=== PATIENT | male | born 1980 | race African-American/Black ===

== ENCOUNTER 2018-05-22 03:45 | Emergency (ER) | payer OTHER ==
[~2018-05-22] VITALS: Ht 185.4 cm; Wt 145.1 kg
[2018-05-22] MEDS ORDERED: KETOROLAC 15 MG/ML VIAL. IV ONE (04:15)
[2018-05-22] MEDS ORDERED: ONDANSETRON PF 4 MG/2 ML VIAL. IV ONE (04:15)
[2018-05-22 04:58] LABS: BASO % 1 % (0-3); EOS % 1 % (0-3); HEMATOCRIT 51.1 % (39.0-53.0); HEMOGLOBIN 16.3 g/dL (13.0-17.5); LYMPH # 1.8 x10^3/uL (1.0-4.8); LYMPH % 46 % (24-48); MEAN CORPUSCULAR HEMOGLOBIN 27 pg (25-35); MEAN CORPUSCULAR HGB CONC 32 g/dL (31-37); MEAN CORPUSCULAR VOLUME 84 fL (79-100); MONO # 0.4 x10^3/uL (0.0-1.1); MONO % 11 % (0-9); NEUT # 1.6 x10^3uL (1.8-7.7); NEUT % 41 % (31-73); PLATELET COUNT 193 x10^3/uL (140-400); RED CELL DISTRIBUTION WIDTH 13.9 % (11.5-14.5)
--- NOTE | 2018-05-22 05:07 | RAD ---
PQRS Compliance statement: One or more of the following individualized dose reduction techniques were utilized for this examination: 1. Automated exposure control. 2. Adjustment of the mA and/or kV according to patient size. 3. Use of iterative reconstruction technique. Indication:right renal colic TECHNIQUE: CT abdomen and pelvis without IV contrast with multiplanar reformats. COMPARISON: None FINDINGS: Limited evaluation of solid abdominal and pelvic organs due to lack of IV contrast. Heart is normal in size. No pericardial or pleural effusion. Clear lung bases. Noncontrast appearance of the liver, spleen, gallbladder, pancreas, adrenals within normal limits. Obstructing 3-4 mm stone in the distal right ureter causing mild hydroureteronephrosis and right renal edema. Punctate nonobstructing right renal stone. No left-sided nephrolithiasis or hydronephrosis. No enlarged retroperitoneal or pelvic adenopathy. No free pelvic fluid or ascites. No bowel obstruction. Normal appendix. Urinary bladder demonstrates no radiopaque stones. The prostate and seminal vesicles show no large mass. No pneumoperitoneum. No suspicious bony lesion. IMPRESSION: Limited evaluation of solid abdominal and pelvic organs due to lack of IV contrast. Obstructing 4 mm distal right ureteral stone. Electronically signed by: Christian Costello DO (05/22/2018 5:03 AM) [facility]
[2018-05-22 05:13] LABS: CALCIUM 9.4 mg/dL (8.5-10.1); CREATININE 1.9 mg/dL (0.7-1.3); POTASSIUM 3.5 mmol/L (3.5-5.1)
[2018-05-22] MEDS ORDERED: IV NORMAL SALINE 1000ML BAG 1,000 ML IV ONE (05:30)
--- NOTE | 2018-05-22 05:39 | PHYS DOC ---
Past Medical History Past Medical History: No Pertinent History (OSMAR PASTOR MD) Past Surgical History: No Surgical History (OSMAR PASTOR MD) Alcohol Use: None Drug Use: None (OSMAR PASTOR MD) Adult General Chief Complaint Chief Complaint: FLANK PAIN HPI HPI Patient is a 37 year old male presenting with chief complaint of right flank pain onset a couple hours ago sharp severe with some diffuse crampy abdominal pain as well positive nausea no previous history no fever vomiting in the ER pain is currently better (OSMAR PASOTR MD) Review of Systems Review of Systems Constitutional: Denies fever or chills [] Eyes: Denies change in visual acuity, redness, or eye pain [] HENT: Denies nasal congestion or sore throat [] Respiratory: Denies cough or shortness of breath [] Neurologic: Denies headache, focal weakness or sensory changes [] Endocrine: Denies polyuria or polydipsia [] All other systems were reviewed and found to be within normal limits, except as documented in this note. (OSMAR PASTOR MD) Current Medications Current Medications Current Medications Medications (Trade) Dose Ordered Sig/Mallory Start Time Stop Time Status Last Admin Dose Admin Ketorolac Tromethamine (Toradol 15mg Vial) 15 mg 1X ONCE 05/22/18 04:15 05/22/18 04:32 DC 05/22/18 04:29 15 MG Ondansetron HCl (Zofran) 4 mg 1X ONCE 05/22/18 04:15 05/22/18 04:32 DC 05/22/18 04:29 4 MG Sodium Chloride 1,000 ml @ 1,000 mls/hr 1X ONCE 05/22/18 05:30 05/22/18 06:29 DC 05/22/18 05:39 1,000 MLS/HR (GAMA VARGAS DO) Allergies Allergies Allergies Coded Allergies Type Severity Reaction Last Updated Verified No Known Drug Allergies 05/22/18 No (GAMA VARGAS DO) Physical Exam Physical Exam Constitutional: Well developed, well nourished, no acute distress, non-toxic appearance. [] HENT: Normocephalic, atraumatic, bilateral external ears normal, oropharynx moist, no oral exudates, nose normal. [] Eyes: PERRLA, EOMI, conjunctiva normal, no discharge. [] Neck: Normal range of motion, no tenderness, supple, no stridor. [] Pulmonary: Normal respiratory effort no increased work of breathing no obvious chest wall trauma Abdomen: Bowel sounds normal, soft, no tenderness, no masses, no pulsatile masses. [] Skin: Warm, dry, no erythema, no rash. [] Back: , there is palpation noted in the right CVA Extremities: No tenderness, no cyanosis, no clubbing, ROM intact, no edema. [] Neurologic: Alert and oriented X 3, normal motor function, normal sensory function, no focal deficits noted. [] Psychologic: Affect normal, judgement normal, mood normal. [] (OSMAR PASTOR MD) Current Patient Data Vital Signs Vital Signs Date Time Temp Pulse Resp B/P (MAP) Pulse Ox O2 Delivery O2 Flow Rate FiO2 05/22/18 04:26 66 18 167/81 (109) 99 Room Air 05/22/18 04:00 98.3 98.3 (GAMA VARGAS DO) Lab Values Laboratory Tests Test 05/22/18 04:15 05/22/18 07:11 White Blood Count 4.0 x10^3/uL (4.0-11.0) Red Blood Count 6.10 x10^6/uL (4.30-5.70) H Hemoglobin 16.3 g/dL (13.0-17.5) Hematocrit 51.1 % (39.0-53.0) Mean Corpuscular Volume 84 fL (79-100) Mean Corpuscular Hemoglobin 27 pg (25-35) Mean Corpuscular Hemoglobin Concent 32 g/dL (31-37) Red Cell Distribution Width 13.9 % (11.5-14.5) Platelet Count 193 x10^3/uL (140-400) Neutrophils (%) (Auto) 41 % (31-73) Lymphocytes (%) (Auto) 46 % (24-48) Monocytes (%) (Auto) 11 % (0-9) H Eosinophils (%) (Auto) 1 % (0-3) Basophils (%) (Auto) 1 % (0-3) Neutrophils # (Auto) 1.6 x10^3uL (1.8-7.7) L Lymphocytes # (Auto) 1.8 x10^3/uL (1.0-4.8) Monocytes # (Auto) 0.4 x10^3/uL (0.0-1.1) Eosinophils # (Auto) 0.0 x10^3/uL (0.0-0.7) Basophils # (Auto) 0.0 x10^3/uL (0.0-0.2) Sodium Level 144 mmol/L (136-145) Potassium Level 3.5 mmol/L (3.5-5.1) Chloride Level 103 mmol/L (98-107) Carbon Dioxide Level 28 mmol/L (21-32) Anion Gap 13 (6-14) 14 mmol/L (6-14) Blood Urea Nitrogen 18 mg/dL (8-26) Creatinine 1.9 mg/dL (0.7-1.3) H Estimated GFR (Cockcroft-Gault) 48.0 BUN/Creatinine Ratio 9 (6-20) Glucose Level 115 mg/dL (70-99) H 102 mg/dL (70-99) H Calcium Level 9.4 mg/dL (8.5-10.1) Total Bilirubin 1.0 mg/dL (0.2-1.0) Aspartate Amino Transferase (AST) 35 U/L (15-37) Alanine Aminotransferase (ALT) 59 U/L (16-63) Alkaline Phosphatase 64 U/L (46-116) Total Protein 8.0 g/dL (6.4-8.2) Albumin 4.0 g/dL (3.4-5.0) Albumin/Globulin Ratio 1.0 (1.0-1.7) Lipase 73 U/L (73-393) POC Hemoglobin 16.7 g/dL (14-18) POC Hematocrit 49 % (37-52) POC Sodium 141 mmol/L (135-145) POC Potassium 5.8 mmol/L (3.5-5.0) H POC Chloride 105 mmol/L (98-110) POC Total CO2 29 mmol/L (23-32) POC Blood Urea Nitrogen 22 mg/dL (8-26) POC Creatinine 1.6 mg/dL (0.5-1.4) H POC Ionized Calcium (Jacinto) 1.18 mmol/L (1.13-1.32) Laboratory Tests 05/22/18 04:15 Laboratory Tests 05/22/18 04:15 05/22/18 07:11 (GAMA VARGAS DO) EKG EKG [] (OSMAR PASTOR MD) Radiology/Procedures Radiology/Procedures [] (OSMAR PASTOR MD) Impressions: 4 mm stone noted in the right ureter (OSMAR PASTOR MD) Course & Med Decision Making Course & Med Decision Making Pertinent Labs and Imaging studies reviewed. (See chart for details) []Kidney stone noted creatinine 1.9 I have no baseline we will give IV fluids and repeat i-STAT chemistry care to Dr. Hernandes UA is currently pending as well patient be discharged plan for [facility] urology follow-up as needed if not improving. (OSMAR PASTOR MD) Course & Med Decision Making Patient was given IV fluids and creatinine decreased to 1.6. Patient has no pain feels much better and wants to go home. Patient understands that he has been given prescriptions and recommendation to follow-up with urology if symptoms recur. Patient is safe for discharge at this time. (GAMA VARGAS DO) Dragon Disclaimer Dragon Disclaimer This electronic medical record was generated, in whole or in part, using a voice recognition dictation system. (OSMAR PASTOR MD) Departure Departure Impression: Primary Impression: Renal colic Referrals: NO PCP (PCP) Scripts Hydrocodone/Apap 5-325 (NORCO 5-325 TABLET) 1 Each Tablet 1-2 EACH PO PRN Q6HRS PRN for PAIN, #15 as needed for pain Prov: OSMAR PASTOR MD 05/22/18 Tamsulosin Hcl (FLOMAX) 0.4 Mg Cap.er.24h 1 CAP PO DAILY, #10 CAP 0 Refills Prov: OSMAR PASTOR MD 05/22/18 OSMAR PASTOR MD May 22, 2018 05:39 GAMA VARGAS DO May 22, 2018 07:23
[2018-05-22] MEDS ORDERED: HYDR-3164 PO (05:41)
[2018-05-22] MEDS ORDERED: TAMS0.4C97 PO (05:41)
[2018-05-22 07:18] LABS: CREATININE ISTAT 1.6 mg/dL (0.5-1.4); HEMOGLOBIN ISTAT 16.7 g/dL (14-18); ION CA ISTAT 1.18 mmol/L (1.13-1.32); POTASSIUM ISTAT 5.8 mmol/L (3.5-5.0)
[2018-05-22 07:39] VITALS: BP 123/59
== END 2018-05-22 07:42 | disposition home or self-care (01) ==
LOC: ER 03:45
DX: N23 Unspecified renal colic (principal); R11.0 Nausea
CPT/HCPCS: 36415; 74176; 80047; 80053; 83690; 85025; 96374; 96375; 99284; J1885; J2405; J7030